=== PATIENT | male | born 2005 | race Caucasian/White ===

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

== ENCOUNTER 2023-09-22 17:08 | Emergency (ER) | payer SELFPAY ==
[~2023-09-22] VITALS: Ht 180.3 cm; Wt 63.5 kg
[~2023-09-22 17:08] MED LIST changes: +NAPROXEN500 MG PO
[2023-09-22 17:12] VITALS: BP 127/74
[2023-09-22 17:15] VITALS: BP 116/77
[2023-09-22 17:30] VITALS: BP 122/66
[2023-09-22] MEDS ORDERED: AMOX/K CLAV875 M1 PO (18:02)
[2023-09-22 18:26] VITALS: BP 122/66
== END 2023-09-22 18:52 | disposition home or self-care (01) | DRG 153 ==
LOC: ED 17:08
DX: J06.9 Acute upper respiratory infection, unspecified (principal); Z20.822 Contact with and (suspected) exposure to COVID-19

== ENCOUNTER 2024-04-27 08:14 | Emergency (ER) | payer SELFPAY ==
[~2024-04-27] VITALS: Ht 180.3 cm; Wt 65.0 kg
[~2024-04-27 08:14] MED LIST changes: +AMOX/K CLAV875 M1 PO; +CLINDAMYCIN300 M1 PO; +MOTRIN800 MG PO
[2024-04-27 08:34] VITALS: BP 120/85
[2024-04-27] MEDS ORDERED: ONDANSETRON HCl 4 MG/2 ML SDV IV ONE (08:40)
[2024-04-27] MEDS ORDERED: SODIUM CHLORIDE 0.9% 1,000 ML IV ONE (08:40)
[2024-04-27 09:08] LABS: BASO% 0.5 % (0-3); EOS% 4.1 % (0-8); LYMPH% 35.6 % (15-41); MEAN CELL VOLUME 93.7 fL CALC (80.0-100.0); MEAN CORPUSCULAR HGB 32.1 pG CALC (26.0-32.0); MEAN CORPUSCULAR HGB CONC 34.3 g/dL CAL (32.0-36.0); MONO% 7.8 % (2-13); NEUT# 2.28 thou/uL (1.82-7.42); RED BLOOD COUNT 4.58 mill/uL (4.70-6.10); RED CELL DISTRI WIDTH 12.1 % (11.5-15.5)
[2024-04-27 09:17] LABS: HEMATOCRIT 42.9 % (39.0-50.0); HEMOGLOBIN 14.7 g/dl (14.0-18.0)
[2024-04-27 09:22] LABS: BILIRUBIN, TOTAL 0.6 mg/dL (0.2-1.3); CREATININE 0.9 mg/dL (0.7-1.3); POTASSIUM 4.1 mmol/l (3.5-5.1); TOTAL PROTEIN 7.6 g/dL (6.3-8.2)
[2024-04-27] MEDS ORDERED: IMODIUM A-D2 M3 PO (10:00)
[2024-04-27] MEDS ORDERED: ZOFRAN4 MG/TAB PO (10:00)
[2024-04-27 10:07] VITALS: BP 120/85
== END 2024-04-27 10:21 | disposition home or self-care (01) | DRG 392 ==
LOC: ED 08:14
PROVIDERS: Family Medicine
DX: R11.2 Nausea with vomiting, unspecified (principal); R19.7 Diarrhea, unspecified; Z20.822 Contact with and (suspected) exposure to COVID-19
CPT/HCPCS: J2405